=== PATIENT | female | born 1975 | race Two or more races ===

== ENCOUNTER 2021-04-21 17:02 | Emergency (ER) | payer OTHER ==
[~2021-04-21] VITALS: Ht 165.1 cm; Wt 127.0 kg
[2021-04-21 18:38] LABS: Urine Bacteria FEW /hpf (None Seen); Urine Blood 3+ /uL (Negative); Urine Mucus FEW (None Seen); Urine Specific Gravity 1.024 (1.001-1.035); Urine WBC 1 /hpf (0 - 5)
[2021-04-21 20:26] VITALS: BP 129/64
== END 2021-04-21 20:28 | disposition home or self-care (01) ==
LOC: ER 17:02
DX: R10.32 Left lower quadrant pain (principal); I10 Essential (primary) hypertension; F17.210 Nicotine dependence, cigarettes, uncomplicated; F12.10 Cannabis abuse, uncomplicated; Z90.49 Acquired absence of other specified parts of digestive tract; Z32.02 Encounter for pregnancy test, result negative
CPT/HCPCS: 74176; 81001; 81025